=== PATIENT | male | born 1975 | race Caucasian/White ===

== ENCOUNTER 2020-05-15 09:48 | Emergency (ER) | payer OTHER ==
[~2020-05-15] VITALS: Ht 190.5 cm; Wt 127.0 kg
[~2020-05-15 09:48] MED LIST: HYDROCODONE-AP1 EAC6 PO; XARELTO15 MG PO
[2020-05-15] MEDS ORDERED: SUPER THERAVIT1 EACH PO (10:09)
[2020-05-15] MEDS ORDERED: ZANAFLEX4 MG PO (11:39)
[2020-05-15] MEDS ORDERED: NAPROSYN500 MG PO (11:39)
[2020-05-15 11:51] VITALS: BP 128/72
== END 2020-05-15 11:52 | disposition home or self-care (01) ==
LOC: M.ERS 09:48
DX: S40.012A Contusion of left shoulder, initial encounter (principal); S29.012A Strain of muscle and tendon of back wall of thorax, initial encounter; S09.90XA Unspecified injury of head, initial encounter; Z79.899 Other long term (current) drug therapy; V49.9XXA Car occupant (driver) (passenger) injured in unspecified traffic accident, initial encounter; Y93.89 Activity, other specified; Y92.89 Other specified places as the place of occurrence of the external cause; Y99.8 Other external cause status